=== PATIENT | female | born 1955 | race Two or more races ===

== ENCOUNTER 2016-09-25 18:41 | Emergency (ER) | payer OTHER ==
[~2016-09-25] VITALS: Ht 167.6 cm; Wt 136.1 kg
[2016-09-25 20:01] LABS: DEFINITIVE VIEW TRANSMISSION; Hemoglobin 15.5 g/dL (12.2-16.2); Mean Corpuscular Hemoglobin 23.5 pg (28.0-32.0); Mean Corpuscular Hgb Conc. 30.9 g/dL (32.0-36.0); Mean Corpuscular Volume 76.2 fL (80.0-100.0); Mean Platelet Volume 9.4 fL (7.4-10.4); Platelet Count (auto) 270 10^3/uL (140-450); Red Cell Distribution Width 17.8 % (11.6-16.0)
[2016-09-25 20:07] LABS: Metamyelocytes % 0; Myelocytes % 0; Promyelocytes % 0; Reactive Lymphocytes 0
[2016-09-25 20:15] LABS: Albumin 3.1 g/dL (3.4-5.0); Calcium 8.1 mg/dL (8.5-10.1)
[2016-09-25 20:22] LABS: Total Protein 6.9 g/dL (6.4-8.2)
[2016-09-25 20:24] LABS: Bilirubin, Total 0.4 mg/dL (0.2-1.0)
[2016-09-25] MEDS ORDERED: FAMOTIDINE (10MG/ML) 2ML VL IV ONE (21:15)
[2016-09-25] MEDS ORDERED: methylPREDNISolone SOD SUCC 125 MG/2 ML VL IV ONE (21:15)
[2016-09-25 21:19] LABS: B-Type Natriuretic Peptide 24.75 pg/mL (0-100)
[2016-09-25 21:44] LABS: Temperature: 20.8 C (20.0-25.0)
[2016-09-25 21:52] LABS: Platelet Estimate Adequate
[2016-09-25 21:55] LABS: Hypochromia Moderate; Microcytosis Slight; Ovalocytes FEW; Stomatocytes Few
[2016-09-26] MEDS ORDERED: FUROSEMIDE 40 MG/4 ML VIAL IV ONE (00:45)
[2016-09-26] MEDS ORDERED: ENALAPRILAT 1.25 MG/ML-1ML VIAL IV ONE (00:45)
[2016-09-26 01:00] VITALS: BP 109/45
== END 2016-09-26 01:55 | disposition home or self-care (01) ==
LOC: ER 18:53
DX: L50.8 Other urticaria (principal); I11.0 Hypertensive heart disease with heart failure; I50.9 Heart failure, unspecified; J44.9 Chronic obstructive pulmonary disease, unspecified; J45.909 Unspecified asthma, uncomplicated
CPT/HCPCS: 36415; 71020; 80053; 82962; 83880; 84484; 85007; 85027; 93005; 96374; 96375; 99285; J1940; J2930; J3490